=== PATIENT | female | born 1965 | race Caucasian/White ===

== ENCOUNTER 2019-02-09 21:54 | Inpatient (IN) | payer OTHER ==
[~2019-02-09] VITALS: Ht 167.6 cm; Wt 112.9 kg
[~2019-02-09 21:54] MED LIST: BACTRIM DS TAB1 EACH PO; BACTROBAN NASAL1 GM NASAL; FLEXERIL PO; GLIPIZIDE XL10 MG; NEURONTIN600 MG; PERCOCET 5-3251 EACH PO; POLYMYXIN B/TMP10 ML OP; PROAIR HFA8.5 GM INH; TESSALON PERLE100 MG PO; TRAMADOL 50 MG50 MG
[2019-02-09 21:55] VITALS: BP 167/71
[2019-02-09] MEDS ORDERED: LISINOPRIL5 MG PO (22:01)
[2019-02-09] MEDS ORDERED: LANTUS SUBQ (22:02)
[2019-02-09] MEDS ORDERED: NOVOLOG100 UNIT/M SUBQ (22:03)
[2019-02-09 22:34] LABS: ABSOLUTE EOSINOPHILS 0.1 thou/uL (0.0-0.7); ABSOLUTE LYMPHOCYTES 2.7 thou/uL (0.8-5.3); ABSOLUTE MONOCYTES 0.8 thou/uL (0.0-1.2); ABSOLUTE NEUTROPHILS 5.7 thou/uL (1.6-8.1); BASOPHILS 0.4 %; EOSINOPHILS 1.1 %; HEMATOCRIT 42.7 % (37.0-47.0); HEMOGLOBIN 14.8 gm/dL (12.0-15.0); LYMPHOCYTES 29.2 %; MCH 29.2 pg (26.0-34.0); MCHC 34.6 g/dL (28.0-37.0); MCV 84.4 fL (80.0-100.0); MONOCYTES 8.5 %; MPV 8.6 fl. (7.2-11.1); NUCLEATED RBCS 0 /100WBC; PLATELET COUNT* 210 thou/uL (150-400); POLYS 60.8 %; RBC 5.05 mil/uL (4.20-5.00); RDW-CV 13.3 % (10.5-14.5); WBC 9.3 thou/uL (4.0-11.0)
[2019-02-09 22:43] LABS: CALCIUM 9.3 mg/dL (8.5-10.1); CREATININE 0.8 mg/dL (0.6-1.3); POTASSIUM 3.6 mmol/L (3.5-5.1)
[2019-02-09 22:52] LABS: ALBUMIN 3.9 g/dL (3.4-5.0); TOTAL BILIRUBIN 0.3 mg/dL (<0.1-1.0); TOTAL PROTEIN 7.9 g/dL (6.4-8.2)
[2019-02-09 23:02] LABS: URINE BILIRUBIN NEGATIVE (Negative); URINE BLOOD NEGATIVE (Negative); URINE CLARITY CLEAR; URINE COLOR YELLOW; URINE GLUCOSE-RANDOM NEGATIVE (Negative); URINE KETONES NEGATIVE (Negative); URINE LEUKOCYTES-REFLEX NEGATIVE (Negative); URINE NITRITE-REFLEX NEGATIVE (Negative); URINE PROTEIN NEGATIVE (Negative); URINE SPECIFIC GRAVITY 1.015 (1.005-1.030); URINE UROBILINOGEN 0.2 E.U./dl (0.2-1.0)
[2019-02-10] VITALS (7 sets, daily range): BP systolic 126–168; BP diastolic 45–84
--- NOTE | 2019-02-10 01:00 | NUR ---
RECIEVED REPORT FROM ER AND ADMITTED TO ROOM AT 0050. PT CALM AND COOPERATIVE. TELEMETRY APPLIED AND SHOWING SR WITH 1ST AVB. PT DENIES VISION PROBLEMS AT THIS TIME, READING TEXT MESSAGES ON HER CELLPHONE. SEE ADMISSION ASSESSMENT AND HX. WILL CONT TO MONITOR AND ASSIST NEEDED.
[2019-02-10] MEDS ORDERED: NOVOLOG100 UNIT/M SUBQ (02:13)
--- NOTE | 2019-02-10 06:30 | NUR ---
PT IS EXTREMELY ANXIOUS, ENCOURAGED TO REST AND BREATH THROUGH THE ANXIETY, PO MED GIVEN. ORDERED OBTAINED FOR HOME INSULIN TO REDUCE ANXIETY. NO CHANGE IN ASSESSMENT. DENIES VISUAL PROBLEMS.
[2019-02-10 10:23] LABS: HEMATOCRIT 39.3 % (37.0-47.0); HEMOGLOBIN 13.4 gm/dL (12.0-15.0); MCH 29.2 pg (26.0-34.0); MCHC 34.1 g/dL (28.0-37.0); MCV 85.8 fL (80.0-100.0); RBC 4.58 mil/uL (4.20-5.00); RDW-CV 13.4 % (10.5-14.5); WBC 7.7 thou/uL (4.0-11.0)
[2019-02-10 10:29] LABS: ANION GAP 8 mmol/L (7-16); BUN 15 mg/dL (7-18); CALCIUM 8.6 mg/dL (8.5-10.1); CHLORIDE 104 mmol/L (98-107); CO2 27 mmol/L (21-32); CREATININE 0.7 mg/dL (0.6-1.3); GLUCOSE 139 mg/dL (70-99); POTASSIUM 4.1 mmol/L (3.5-5.1); SODIUM 139 mmol/L (136-145)
[2019-02-10 10:30] LABS: SERUM ASSESSMENT Clear
[2019-02-10 10:43] LABS: CHOLESTEROL 188 mg/dL (<200); HDL CHOLESTEROL 33 mg/dL (>40); LDL CHOLESTEROL 119 mg/dL (<100); TC:HDL 5.7 Ratio (Not establshd); TRIGLYCERIDE 184 mg/dL (<150); VLDL 37 mg/dL (<40)
[2019-02-10] MEDS ORDERED: PROPRANOLOL 1010 MG PO (11:04)
[2019-02-10] MEDS ORDERED: LIPITOR40 MG PO (11:04)
[2019-02-10] MEDS ORDERED: ASA81BEC PO (11:04)
--- NOTE | 2019-02-10 13:35 | 2DMMODE ---
[place] [address] 2 D/M-MODE ECHOCARDIOGRAM Name: SETH RUDD JOSE Room: [address] IN [facility]#: [id number] Admission: 02/10/19 Attend Phys: Wilder Culp, Discharge: Date of : 61 Date of Service: 02/10/19 1335 Report #: [id number] THIS REPORT FOR: //name// APPROVED REPORT Study performed: 02/10/2019 10:14:31 EXAM: Comprehensive 2D, Doppler, and color-flow Echocardiogram Patient Location: In-Patient Room #: 208 Status: routine BSA: 2.18 HR: 82 bpm BP: 168/84 mmHg Rhythm: NSR Other Information Study Quality: Good Indications CVA/TIA Hypertension/HDD Echo Enhancing Agent Indication: Rule out Shunt Agent(s) / Amount(s) Used: Agitated Saline 10 cc 2D Dimensions IVSd: 14.73 (7-11mm) LVOT Diam: 20.76 (18-24mm) LVDd: 39.81 mm PWd: 14.32 (7-11mm) Ascending Ao: 31.77 (22-36mm) LVDs: 23.23 (25-40mm) Aortic Root: 32.58 mm Volumes Left Atrial Volume (Systole) LA ESV Index: 24.70 mL/m2 Aortic Valve AoV Peak Jose Angel.: 1.91 m/s AO Peak Gr.: 14.54 mmHg LVOT Max P.92 mmHg AO Mean Gr.: 7.95 mmHg LVOT Mean P.05 mmHg LVOT Max V: 1.32 m/s AO V2 VTI: 30.82 cm LVOT Mean V: 0.78 m/s MELISSA (VTI): 2.52 cm2 LVOT V1 VTI: 22.92 [place] [address] 2 D/M-MODE ECHOCARDIOGRAM Name: SETH RUDD Room: [address] IN ..#: [id number] Admission: 02/10/19 Attend Phys: Wilder Culp, Discharge: Date of : 61 Date of Service: 02/10/19 1335 Report #: [id number] Mitral Valve E/A Ratio: 0.81 MV Decel. Time: 225.84 ms MV E Max Jose Angel.: 1.09 m/s MV PHT: 65.49 ms MVA (PHT): 3.36 cm2 TDI E/Lateral E': 10.90 E/Medial E': 12.11 Medial E' Jose Angel.: 0.09 m/s Lateral E' Jose Angel.: 0.10 m/s Pulmonary Valve PV Peak Jose Angel.: 1.03 m/s PV Peak Gr.: 4.27 mmHg Tricuspid Valve RAP Estimate: 5.00 mmHg TR Peak Gr.: 21.57 mmHg RVSP: 26.00 mmHg PA Pressure: 26.00 mmHg Left Ventricle The left ventricle is normal size. There is normal LV segmental wall motion. Mild concentric left ventricular hypertrophy. Left ventricular systolic function is normal. The left ventricular ejection fraction is within the normal range. LVEF is 60%. Grade I - abnormal relaxation pattern. Right Ventricle The right ventricle is normal size. The right ventricular systolic function is normal. Atria The left atrium size is normal. Interatrial septum is intact without evidence of ASD or PFO. The right atrium size is normal. Aortic Valve Mild aortic valve sclerosis. No aortic regurgitation is present. There is no aortic valvular stenosis. Mitral Valve Moderate mitral annular calcification. There is no mitral valve regurgitation noted. No evidence of mitral valve stenosis. Tricuspid Valve The tricuspid valve is [place] [address] 2 D/M-MODE ECHOCARDIOGRAM Name: FLORENCIA RUDDN JOSE Room: [address] IN .#: [id number] Admission: 02/10/19 Attend Phys: Wilder Culp, Discharge: Date of : 61 Date of Service: 02/10/19 1335 Report #: [id number] regurgitation. No pulmonary hypertension. Pulmonic Valve The pulmonary valve is normal in structure. There is no pulmonic valvular regurgitation. Great Vessels The aortic root is normal in size. IVC is normal in size and collapses >50% with inspiration. Pericardium There is no pericardial effusion. <Conclusion> The left ventricle is normal size. Mild concentric left ventricular hypertrophy. Left ventricular systolic function is normal. The left ventricular ejection fraction is within the normal range. LVEF is 60%. Grade I - abnormal relaxation pattern. The right ventricle is normal size. The left atrium size is normal. Mild aortic valve sclerosis. No aortic regurgitation is present. There is no aortic valvular stenosis. Moderate mitral annular calcification. There is no mitral valve regurgitation noted. No evidence of mitral valve stenosis. The tricuspid valve is normal in structure. IVC is normal in size and collapses >50% with inspiration. There is no pericardial effusion. There is normal LV segmental wall motion. Interatrial septum is intact without evidence of ASD or PFO. <ELECTRONICALLY SIGNED> By: Chet Quiles MD, FACC 02/10/19 1335 1335 1335 Chet Quiles MD, FACC /INF
--- NOTE | 2019-02-10 13:55 | EKG ---
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: SUSHIL : 1965 Requested By: Nancy Thurston Order Number: [id number] MD: Chet Quiles Measurements Intervals [place] Rate: 103 P: 48 NH: 197 QRS: -45 QRSD: 112 T: 83 QT: 335 QTc: 439 Interpretive Statements Sinus tachycardia Borderline prolonged NH interval Left ventricular hypertrophy Inferior infarct, old Anterior infarct, old No previous ECG available for comparison Electronically Signed On 02-10-2019 13:55:21 [employer]ES [employer]ENT by Chet Quiles [email or web address] <ELECTRONICALLY SIGNED> By: Chet Quiles MD, [facility] 02/10/19 1355 [id number] Chet Quiles MD, [facility] /EPI
--- NOTE | 2019-02-10 19:05 | NUR ---
FARHAT RESTING IN BED. SHE WAS SEEN [facility] AND THEY DECIDED THAT SHE COULD GO HOME TOMORROW AFTER ASSESSING IF THE NEW MEDS WOULD AFFECT HER. VSS. AOX4. UP AD ABBIE. HOURLKY ROUNDING COMPLETED FOR FARHAT SAFETY.
[2019-02-11] VITALS: BP 130/63
[2019-02-11 02:06] LABS: GLYCOHEMOGLOBIN (HGB A1C) 6.1 % (4.8-5.6)
--- NOTE | 2019-02-11 02:31 | NUR ---
PT ALERT ORIENTED. UP IN ROOM. PT CRYING SAYING SHE HAS HAD NO SLEEP IN DAYS. DENIES PAIN, LEBRON OR BLURRED VISION. TRAZADONE AND XANAX GIVEN HS. PT RESTING WELL. TELEMETRY SHOWS SR. LUBNA.
[2019-02-11 04:00] VITALS: BP 133/59
[2019-02-11 08:00] VITALS: BP 175/99
--- NOTE | 2019-02-11 08:09 | NUR ---
ASSUMED PT. CARE AND RECEIVED REPORT AT 0730. PT A/OX4, MONITOR ON TRACING SR WITH 1ST. PT. ANXIOUS ABOUT BP BEING ELEVATED THIS MORNING. DISCUSSED A.M. MEDS AND PLAN OF CARE. FULL ASSESSMENT COMPLETED, REFER TO CHARTING. CALL LIGHT IN REACH, WILL CONTINUE WITH PLAN OF CARE.
[2019-02-11] MEDS ORDERED: XANAX 0.25 MG0.25 MG PO (10:19)
[2019-02-11] MEDS ORDERED: TRAZODONE HCL50 MG PO (10:20)
[2019-02-11 10:21] VITALS: BP 175/99
== END 2019-02-11 12:55 | disposition home or self-care (01) | DRG 103 ==
LOC: M.ERS 21:54 → M.TBA-ER 02-10 00:04 → M.2W 02-10 00:04
PROVIDERS: Personal Emergency Response Attendant; ADMIT Internal Medicine
DX: G43.109 Migraine with aura, not intractable, without status migrainosus (principal); Z68.41 Body mass index [BMI] 40.0-44.9, adult; I16.0 Hypertensive urgency; I10 Essential (primary) hypertension; E66.9 Obesity, unspecified; F41.9 Anxiety disorder, unspecified; F41.1 Generalized anxiety disorder; E78.5 Hyperlipidemia, unspecified; E11.40 Type 2 diabetes mellitus with diabetic neuropathy, unspecified; Z79.4 Long term (current) use of insulin; Z87.891 Personal history of nicotine dependence; Z79.82 Long term (current) use of aspirin; Z79.899 Other long term (current) drug therapy

== ENCOUNTER 2019-02-28 22:16 | Emergency (ER) | payer OTHER ==
[~2019-02-28] VITALS: Ht 167.6 cm; Wt 109.3 kg
[~2019-02-28 22:16] MED LIST changes: +ASA81BEC PO; +LANTUS SUBQ; +LIPITOR40 MG PO; +LISINOPRIL5 MG PO; +NOVOLOG100 UNIT/M SUBQ; +PROPRANOLOL 1010 MG PO; +TRAZODONE HCL50 MG PO; +XANAX 0.25 MG0.25 MG PO
[2019-02-28] MEDS ORDERED: PROPRANOLOL 4040 M1 PO (22:18)
[2019-02-28 23:03] LABS: URINE BILIRUBIN NEGATIVE (Negative); URINE BLOOD TRACE (Negative); URINE CLARITY CLEAR; URINE COLOR YELLOW; URINE GLUCOSE-RANDOM NEGATIVE (Negative); URINE KETONES NEGATIVE (Negative); URINE LEUKOCYTES-REFLEX NEGATIVE (Negative); URINE NITRITE-REFLEX NEGATIVE (Negative); URINE PROTEIN NEGATIVE (Negative); URINE UROBILINOGEN 0.2 E.U./dl (0.2-1.0)
[2019-03-01] MEDS ORDERED: XANAX 1 MG TABLE1 MG PO (00:24)
[2019-03-01 00:32] VITALS: BP 146/78
== END 2019-03-01 00:32 | disposition home or self-care (01) ==
LOC: M.ERS 22:16
PROVIDERS: Emergency Medicine
DX: F41.9 Anxiety disorder, unspecified (principal); I10 Essential (primary) hypertension; E11.40 Type 2 diabetes mellitus with diabetic neuropathy, unspecified; Z87.891 Personal history of nicotine dependence